=== PATIENT | female | born 1995 | race Caucasian/White ===

== ENCOUNTER 2020-03-30 08:19 | Emergency (ER) | payer SELFPAY ==
[2020-03-30] MEDS ORDERED: Sodium Chloride 0.9% 1,000 ML IV ONE (09:01)
[2020-03-30] MEDS ORDERED: Ondansetron 4 MG/2 ML SDV IVPUSH ONE (09:02)
[2020-03-30] MEDS ORDERED: Ketorolac 30 MG/ML SDV IVPUSH ONE (09:02)
--- NOTE | 2020-03-30 09:18 | EDM.PDOC ---
ED HPI GENERAL MEDICAL PROBLEM - General Chief Complaint: Abdominal Pain Stated Complaint: PAIN OF LEFT SIDE Time Seen by Provider: 03/30/20 08:40 Source of Information: Reports: Patient History Limitations: Reports: No Limitations - History of Present Illness INITIAL COMMENTS - FREE TEXT/NARRATIVE: c/o L flank pain felt fine yesterday, pt went to bed at 11p, usually gets up at 9a however she awoke at 4:30a and V x 1, no pain, slept til 7:30a and awoke with pain on her L flank, "like a bad menstrual cramp" boyfriend working and not able to drive her to ED, finally found a way here, pain persistent, has not eased off, 06/06 now, in L flank to back LMP in January, over 4w ago sexually active, no BC, never been nl soft BM yesterday no freq or dysuria some N, no additional V otherwise feels well nothing helps, no change with walking, not tried heat, took no meds Left Abdominal Pain Score (Numeric/FACES): 10 - Related Data Allergies Allergy/AdvReac Type Severity Reaction Status Date / Time No Known Allergies Allergy Verified 03/30/20 08:37 Home Meds: Home Meds NK [No Known Home Meds] 03/30/20 [History] ED ROS GENERAL - Review of Systems Review Of Systems: See Below Constitutional: Reports: No Symptoms HEENT: Reports: No Symptoms Respiratory: Reports: No Symptoms Cardiovascular: Reports: No Symptoms Endocrine: Reports: No Symptoms GI/Abdominal: Reports: Abdominal Pain, Nausea, Vomiting. Denies: Constipation, Diarrhea : Reports: No Symptoms Musculoskeletal: Reports: No Symptoms Skin: Reports: No Symptoms Neurological: Reports: No Symptoms Psychiatric: Reports: No Symptoms Hematologic/Lymphatic: Reports: No Symptoms Immunologic: Reports: No Symptoms ED EXAM, GI/ABD - Physical Exam Exam: See Below Exam Limited By: No Limitations General Appearance: Alert, WD/WN, Mild Distress Head: Atraumatic, Normocephalic Neck: Normal Inspection, Supple, Non-Tender, Full Range of Motion. No: Lymphadenopathy (R), Lymphadenopathy (L) Respiratory/Chest: No Respiratory Distress, Lungs Clear, Normal Breath Sounds, No Accessory Muscle Use, Chest Non-Tender Cardiovascular: Regular Rate, Rhythm, No Edema, No Gallop, No Murmur, No Rub GI/Abdominal Exam: Normal Bowel Sounds, Soft, Other (nl BS x 4, soft, ND, non tender at L flank and LLQ even to deep palp, pt says "it does not hurt when I push on it", no CVAT b/l, no guard, no rebound). No: Guarding, Rebound Back Exam: Normal Inspection, Full Range of Motion. No: CVA Tenderness (R), CVA Tenderness (L) Extremities: Normal Inspection, Normal Range of Motion, Non-Tender, No Pedal Edema Neurological: Alert, Oriented, CN II-XII Intact, Normal Cognition, No Motor/Sensory Deficits Psychiatric: Normal Affect, Normal Mood Skin Exam: Warm, Dry, Intact, Normal Color, No Rash Lymphatic: No Adenopathy Course - Vital Signs Last Recorded V/S: Last Vital Signs Temp 36.7 C 03/30/20 08:42 Pulse 83 03/30/20 08:42 Resp 18 03/30/20 08:42 BP 139/75 03/30/20 08:42 Pulse Ox 100 03/30/20 08:42 - Orders/Labs/Meds Orders: Active Orders 24 hr Category Date Time Status Magnesium Citrate [Citrate of Magnesia] Med 03/30/20 13:47 Once 296 ml PO ONETIME ONE Labs: Laboratory Tests 03/30/20 03/30/20 03/30/20 Range/Units 09:27 09:27 09:27 WBC 15.8 H (4.5-12.0) X10-3/uL RBC 4.47 (3.23-5.20) x10(6)uL Hgb 13.1 (11.5-15.5) g/dL Hct 41.2 (30.0-51.3) % MCV 92.1 (80-96) fL MCH 29.3 (27.7-33.6) pg MCHC 31.8 L (32.2-35.4) g/dL RDW 12.4 (11.5-15.5) % Plt Count 317 (125-369) X10(3)uL MPV 8.1 (7.4-10.4) fL Add Manual Diff Yes Neutrophils % (Manual) 90 H (46-82) % Lymphocytes % (Manual) 4 L (13-37) % Monocytes % (Manual) 6 (4-12) % Sodium 139 (135-145) mmol/L Potassium 3.7 (3.5-5.3) mmol/L Chloride 104 (100-110) mmol/L Carbon Dioxide 27 (21-32) mmol/L BUN 9 (7-18) mg/dL Creatinine 0.9 (0.55-1.02) mg/dL Est Cr Clr Drug Dosing TNP Estimated GFR (MDRD) > 60 (>60) BUN/Creatinine Ratio 10.0 (9-20) Glucose 123 H (80-116) mg/dL Calcium 9.2 (8.6-10.2) mg/dL Total Bilirubin 0.3 (0.1-1.3) mg/dL AST 18 (5-25) IU/L ALT 23 (12-36) U/L Alkaline Phosphatase 83 (56-112) IU/L C-Reactive Protein 0.3 L (0.5-0.9) mg/dL Total Protein 7.7 (6.0-8.0) g/dL Albumin 3.9 (3.5-5.2) g/dL Globulin 3.8 g/dL Albumin/Globulin Ratio 1.0 Lipase 65 L (73-393) U/L HCG, Quant (<5) mIU/mL Urine Color (YELLOW) Urine Appearance (CLEAR) Urine pH (5.0-6.5) Ur Specific [place] (1.010-1.025) Urine Protein (NEGATIVE) mg/dL Urine Glucose (UA) (NORMAL) mg/dL Urine Ketones (NEGATIVE) mg/dL Urine Occult Blood (NEGATIVE) Urine Nitrite (NEGATIVE) Urine Bilirubin (NEGATIVE) Urine Urobilinogen (NEGATIVE) mg/dL Ur Leukocyte Esterase (NEGATIVE) Urine RBC (0-5) Urine WBC (0-5) Ur Squamous Epith Cells (NS,R,O) Urine Bacteria (NS) 03/30/20 03/30/20 Range/Units 09:27 12:30 WBC (4.5-12.0) X10-3/uL RBC (3.23-5.20) x10(6)uL Hgb (11.5-15.5) g/dL Hct (30.0-51.3) % MCV (80-96) fL MCH (27.7-33.6) pg MCHC (32.2-35.4) g/dL RDW (11.5-15.5) % Plt Count (125-369) X10(3)uL MPV (7.4-10.4) fL Add Manual Diff Neutrophils % (Manual) (46-82) % Lymphocytes % (Manual) (13-37) % Monocytes % (Manual) (4-12) % Sodium (135-145) mmol/L Potassium (3.5-5.3) mmol/L Chloride (100-110) mmol/L Carbon Dioxide (21-32) mmol/L BUN (7-18) mg/dL Creatinine (0.55-1.02) mg/dL Est Cr Clr Drug Dosing Estimated GFR (MDRD) (>60) BUN/Creatinine Ratio (9-20) Glucose (80-116) mg/dL Calcium (8.6-10.2) mg/dL Total Bilirubin (0.1-1.3) mg/dL AST (5-25) IU/L ALT (12-36) U/L Alkaline Phosphatase (56-112) IU/L C-Reactive Protein (0.5-0.9) mg/dL Total Protein (6.0-8.0) g/dL Albumin (3.5-5.2) g/dL Globulin g/dL Albumin/Globulin Ratio Lipase (73-393) U/L HCG, Quant < 5 L (<5) mIU/mL Urine Color Yellow (YELLOW) Urine Appearance Clear (CLEAR) Urine pH 8.0 H (5.0-6.5) Ur Specific [place] 1.010 (1.010-1.025) Urine Protein Negative (NEGATIVE) mg/dL Urine Glucose (UA) Normal (NORMAL) mg/dL Urine Ketones Negative (NEGATIVE) mg/dL Urine Occult Blood Large H (NEGATIVE) Urine Nitrite Negative (NEGATIVE) Urine Bilirubin Negative (NEGATIVE) Urine Urobilinogen Normal (NEGATIVE) mg/dL Ur Leukocyte Esterase Negative (NEGATIVE) Urine RBC 0-5 (0-5) Urine WBC 0-5 (0-5) Ur Squamous Epith Cells Few H (NS,R,O) Urine Bacteria Rare H (NS) Meds: Medications Discontinued Medications Generic Name Dose Route Start Last Admin Trade Name Freq PRN Reason Stop Dose Admin Sodium Chloride 1,000 mls @ 999 mls/hr 03/30/20 09:01 Normal Saline IV 03/30/20 10:01 .BOLUS ONE Ketorolac Tromethamine 30 mg 03/30/20 09:02 03/30/20 11:05 Toradol IVPUSH 03/30/20 09:03 Not Given ONETIME ONE Ketorolac Tromethamine 60 mg 03/30/20 10:38 03/30/20 10:44 Toradol IM 03/30/20 10:39 60 mg ONETIME ONE Administration Ondansetron HCl 4 mg 03/30/20 09:02 03/30/20 11:05 Zofran IVPUSH 03/30/20 09:03 Not Given ONETIME ONE Ondansetron HCl 4 mg 03/30/20 10:38 03/30/20 10:43 Zofran Odt PO 03/30/20 10:39 4 mg ONETIME ONE Administration - Re-Assessments/Exams Free Text/Narrative Re-Assessment/Exam: 03/30/20 13:52 pt pain free at d/c unable to get an IV start d/t dehydration, did drink freely here in ED however cause of pain not entirely clear, no acute process identified these issues d/w pt who indicated understanding and had no questions Departure - Departure Time of Disposition: 13:47 Disposition: DC/Tfer to [facility] Condition: Good Clinical Impression: Left lower quadrant abdominal pain, Dehydration - Discharge Information *PRESCRIPTION DRUG MONITORING PROGRAM REVIEWED*: Not Applicable *COPY OF PRESCRIPTION DRUG MONITORING REPORT IN PATIENT KIKA: Not Applicable Instructions: Abdominal Pain, Adult Referrals: PCP,None [Primary Care Provider] - Forms: ED Department Discharge Additional Instructions: The cause of the pain is not entirely clear. It could have been due to a twist (torsion) of the ovary that has now untwisted. It could be due to a cramp of the intestinal muscle that has now relaxed. There is no evidence of infection. You are not . Increase fluids, at least 2 more liters today without caffeine or alcohol. For pain and cramping, take ibuprofen 200 mg 4 tabs and acetaminophen 500 mg 2 tabs every 8 hours as needed. Use moist heat in the tub or shower for 10 minutes every 2 hours as needed. In order to clean out the bowels (and potentially prevent additional cramping), drink a 10-ounce bottle of magnesium citrate when you get home. See your physician in 2-4 days for further evaluation and recommendations. Return to ED if you are feeling worse. Sepsis Event Note (ED) - Evaluation Sepsis Screening Result: No Definite Risk - Focused Exam Vital Signs: Vital Signs Temp Pulse Resp BP Pulse Ox 03/30/20 08:42 36.7 C 83 18 139/75 100 - My Orders Last 24 Hours: My Active Orders 03/30/20 13:47 Magnesium Citrate [Citrate of Magnesia] 296 ml PO ONETIME ONE - Assessment/Plan Last 24 Hours: My Active Orders 03/30/20 13:47 Magnesium Citrate [Citrate of Magnesia] 296 ml PO ONETIME ONE
[2020-03-30] MEDS ORDERED: Ketorolac 60 MG/2 ML SDV IM ONE (10:38)
[2020-03-30] MEDS ORDERED: Ondansetron 4 MG Tab.DIS PO ONE (10:38)
--- NOTE | 2020-03-30 12:01 | US ---
INDICATION: Left pelvic pain times 2 hours, menses late, ? ectopic . WBC 15,000. ULTRASOUND PELVIS NON-OB LIMITED: Utilizing 2D real-time ultrasound with color flow imaging, examination of the pelvis was obtained initially with transabdominal probe and then with transvaginal probe for better visualization of the uterus and ovaries. The uterus measured 9.3 x 4.2 x 5.6 cm with a normal-appearing endometrial cavity echo of 9.1 mm. Right ovary appeared normal with normal blood flow measuring a volume of 5.9 mL with measurements of 2.7 x 1.9 x 2.2 cm. Left ovary appeared normal with normal blood flow measuring 3.76 mL volume with measurements of 1.9 x 1.8 x 2.1 cm. No adnexal mass lesions or free fluid collections were identified. No uterine mass or ovarian mass was identified. No evidence of ovarian torsion was suggested. IMPRESSION: Normal transabdominal and transvaginal pelvic ultrasound. MTDD
[2020-03-30] MEDS ORDERED: Magnesium Citrate Solution 296 ML Bottle PO ONE (13:47)
== END 2020-03-30 14:00 ==
LOC: FB.ED 08:19
DX: E86.0 Dehydration (principal); R10.32 Left lower quadrant pain
CPT/HCPCS: 36415; 76830; 76857; 80053; 81001; 83690; 84702; 85025; 86140; 96372; 99285; A9270; J1885; 99284